=== PATIENT | male | born 1970 | race Caucasian/White ===

== ENCOUNTER → 2020-05-21 | Outpatient (CLI) | payer BC ==
--- NOTE | 2020-05-21 15:50 | RAD ---
EXAM: Left shoulder, 4 views. HISTORY: Baseball injury. COMPARISON: None. FINDINGS: 4 views of the left shoulder obtained. There is no fracture, dislocation or subluxation. There is mild inferior marginal glenoid spurring. IMPRESSION: Mild glenohumeral osteoarthritis. No acute osseous finding. Electronically signed by: Lizet Merritt MD (05/21/2020 3:47 PM) [id number]
--- NOTE | 2020-05-21 15:52 | RAD ---
PROCEDURE: ELBOW LEFT 3V STUDY DATE: 05/21/2020 CLINICAL INDICATION / HISTORY: Reason: PAIN, BASEBALL INJURY 1 MONTH AGO / Spl. Instructions: / History: . TECHNIQUE: Left Elbow 3 views COMPARISON: None FINDINGS: 3 views of the left elbow demonstrate no evidence of fracture, subluxation, or dislocation. Soft tissues unremarkable. IMPRESSION: No acute osseous abnormality. Electronically signed by: Bulmaro Stallings MD (05/21/2020 3:49 PM) [facility]
== END ==
LOC: DXRAD 15:26
PROVIDERS: ATTEND Orthopaedic Surgery
DX: M25.522 Pain in left elbow (principal); M25.512 Pain in left shoulder
CPT/HCPCS: 73030; 73080